=== PATIENT | male | born 1990 | race Asian ===

== ENCOUNTER 2018-07-25 19:09 | Emergency (ER) | payer MEDICAID ==
[2018-07-25] MEDS: IBUPROFEN 200 MG TAB PO (20:34)
[2018-07-25] MEDS: HYDROCODONE/APAP (5/325) TAB PO (20:34)
== END 2018-07-25 22:33 | disposition home or self-care (01) ==
LOC: FTE 19:09
DX: S42.432A Displaced fracture (avulsion) of lateral epicondyle of left humerus, initial encounter for closed fracture (principal); F17.210 Nicotine dependence, cigarettes, uncomplicated; V03.10XA Pedestrian on foot injured in collision with car, pick-up truck or van in traffic accident, initial encounter
CPT/HCPCS: 29105; 73080-LT; 73090; 99283-25